=== PATIENT | female | born 1945 | race Caucasian/White ===

== ENCOUNTER 2017-07-28 09:05 | Emergency (ER) | payer MEDICARE ==
[~2017-07-28 09:05] MED LIST: AZIT500T47 PO; CEP500 PO; CHOL10005 PO; CYAN1TAB17 PO; HYDR473S4 PO; IBUP-1618 PO; KORE100C3 PO; MULT-820 PO; MULT1TAB54 PO; OMEP-137 PO; OMEPRAZOLE PO; OXYC-823 PO; PER PO; VIT-7 PO; [UNRECOGNIZED DRUG - CODE] PO
--- NOTE | 2017-07-28 09:17 | ER Report ---
History and Physical Time Seen By MD: 09:16 HPI/ROS CHIEF COMPLAINT: Would like kidney checked HISTORY OF PRESENT ILLNESS: Patient is a 71-year-old female who is complaining of some right-sided flank pain. Patient denies fevers or chills. Pain does seem worse with range of motion. Patient does admit that over the last day or 2 she' s been doing some yard work outside and has been bending over quite a bit. Patient however is concerned that this could be a potential kidney infection so she comes to the emergency department for evaluation REVIEW OF SYSTEMS: Constitutional: No fever, no chills. Eyes: No discharge. ENT: No sore throat. Cardiovascular: No chest pain, no palpitations. Respiratory: No cough, no shortness of breath. Gastrointestinal: No abdominal pain, no vomiting. Genitourinary: No hematuria. Musculoskeletal: Right-sided flank pain Skin: No rashes. Neurological: No headache. Allergies: Coded Allergies: latex (Verified Allergy, Intermediate, RASH, 08/09/16) Uncoded Allergies: BANDAID ADHESIVE (Allergy, Mild, REDNESS, 11/25/11) HAYFEVER (Allergy, Mild, EYES WATERING, 11/25/11) AVOIDS TYLENOL (Adverse Reaction, Unknown, 11/25/11) Home Meds Active Scripts Diclofenac Sodium (DICLOFENAC SODIUM) 50 Mg Tablet.dr, 50 MG PO BID for PAIN, # 20 TAB 0 Refills Prov:JOSH KABA MD 07/28/17 Methocarbamol (ROBAXIN-750) 750 Mg Tablet, 1500 MG PO TID, #15 TAB 0 Refills Prov:JOSH KABA MD 07/28/17 Reported Medications Cyanocobalamin/Cobamamide (Vitamin B-12 5,000 Mcg Tab Sl) 5,000 Mcg-100 Mcg Tab.subl, 1 MG PO DAILY 08/09/16 Cholecalciferol (Vitamin D3) (VITAMIN D3) 1,000 Unit Tablet, 1000 UNIT PO DAILY , TAB 08/09/16 Omeprazole (OMEPRAZOLE) 20 Mg Tablet.dr, 40 MG PO QDAY, TAB 05/06/15 Multivitamin (MULTI-VITAMIN DAILY) 1 Each Tablet, 1 EACH PO 05/06/15 Hx Smoking: Yes (40 YEARS < 1 PPD) Smoking Status: Former Smoker Hx Substance Use Disorder: No Hx Alcohol Use: Yes Constitutional Vital Sign - Last 24 Hours 07/28/17 07/28/17 07/28/17 07/28/17 09:16 09:30 10:00 10:30 Temp 97.9 Pulse 84 82 75 Resp 18 B/P (MAP) 125/76 103/81 (88) 109/76 (87) 114/71 (85) Pulse Ox 94 94 95 O2 Delivery Room Air 07/28/17 11:00 Pulse 71 B/P (MAP) 102/70 (81) Pulse Ox 96 Physical Exam General/Constitutional: Patient is awake, alert, nontoxic and in no acute respiratory distress. Head: Normocephalic and atraumatic. Eyes: Conjunctival clear, Pupils are equal and reactive to light. Extraocular muscles are intact and symmetrical. Sclera are clear and anicteric. Ears:External canals are clear. Tympanic membranes are clear with normal landmarks and light reflex. Nares: No rhinorrhea or bleeding. Turbinates are pink and moist. Oropharyngeal: Mucous membranes are moist. There is no pharyngeal erythema or exudate. There are no palatal petechiae. Uvula is midline and symmetrical. Neck: Supple, no adenopathy. Cardiovascular: Heart is regular rate and rhythm without audible murmurs, rubs or gallops. Pulmonary: Lungs are clear to auscultation bilaterally. There are no wheezes, rales, or rhonchi. Chest rise is symmetrical Abdomen: Soft, nontender, no guarding or peritoneal signs. Extremities: No gross deformities, No peripheral cyanosis. Able to move all 4 extremities. Neuro: Alert and oriented X3, Cranial nerves 2 thru 12 are intact and symmetrical. Patient has normal gait. Skin: No rashes, skin is warm dry and well perfused. Medical Decision Making Data Points Result Diagram: 07/28/17 0944 07/28/17 0944 Laboratory Hematology Test 07/28/17 09:11 07/28/17 09:44 Urine Color Yellow Urine Clarity Slightly-cloudy Urine pH 6.0 pH (4.8-9.5) Urine Specific [place] 1.004 Urine Protein Negative mg/dL (NEGATIVE) Urine Glucose (UA) Negative mg/dL (NEGATIVE) Urine Ketones Negative mg/dL (NEGATIVE) Urine Blood Negative (NEGATIVE) Urine Nitrite Negative (NEGATIVE) Urine Bilirubin Negative (NEGATIVE) Urine Urobilinogen Negative mg/dL (0.2-1.9) Urine Leukocyte Esterase Trace (NEGATIVE) Urine RBC 1 /HPF (0-2/HPF) Urine WBC 2 /HPF (0-5/HPF) Urine Squamous Epithelial Cells Many /LPF (</=FEW) Urine Bacteria Negative /HPF (NONE-FEW) Urine Mucus None /HPF (NONE-FEW) Red Blood Count 4.26 M/uL (4.17-5.56) Mean Corpuscular Volume 99.2 fL (80.0-96.0) Mean Corpuscular Hemoglobin 35.2 pg (26.0-33.0) Mean Corpuscular Hemoglobin Concent 35.4 g/dL (32.0-36.0) Red Cell Distribution Width 12.8 % (11.5-14.5) Mean Platelet Volume 7.7 fL (7.2-11.1) Neutrophils (%) (Auto) 44.0 % (39.4-72.5) Lymphocytes (%) (Auto) 44.6 % (17.6-49.6) Monocytes (%) (Auto) 7.9 % (4.1-12.4) Eosinophils (%) (Auto) 3.0 % (0.4-6.7) Basophils (%) (Auto) 0.5 % (0.3-1.4) Nucleated RBC Relative Count (auto) 0.0 /100WBC Neutrophils # (Auto) 2.4 K/uL (2.0-7.4) Lymphocytes # (Auto) 2.4 K/uL (1.3-3.6) Monocytes # (Auto) 0.4 K/uL (0.3-1.0) Eosinophils # (Auto) 0.2 K/uL (0.0-0.5) Basophils # (Auto) 0.0 K/uL (0.0-0.1) Nucleated RBC Absolute Count (auto) 0.00 K/uL Sodium Level 142 mmol/L (137-145) Potassium Level 3.8 mmol/L (3.5-5.0) Chloride Level 105 mmol/L (98-107) Carbon Dioxide Level 22 mmol/L (22-31) Blood Urea Nitrogen 20 mg/dl (7-18) Creatinine 0.70 mg/dl (0.52-1.04) Glomerular Filtration Rate Calc > 60.0 Random Glucose 141 mg/dl (75-110) Calcium Level 9.5 mg/dl (8.4-10.2) Total Bilirubin 0.8 mg/dl (0.2-1.3) Aspartate Amino Transf (AST/SGOT) 23 U/L (0-35) Alanine Aminotransferase (ALT/SGPT) 23 U/L (0-56) Alkaline Phosphatase 84 U/L (0-126) Total Protein 7.3 gm/dl (6.3-8.2) Albumin 4.1 g/dl (3.5-5.0) Lipase 80 U/L (23-300) Chemistry Test 07/28/17 09:11 07/28/17 09:44 Urine Color Yellow Urine Clarity Slightly-cloudy Urine pH 6.0 pH (4.8-9.5) Urine Specific [place] 1.004 Urine Protein Negative mg/dL (NEGATIVE) Urine Glucose (UA) Negative mg/dL (NEGATIVE) Urine Ketones Negative mg/dL (NEGATIVE) Urine Blood Negative (NEGATIVE) Urine Nitrite Negative (NEGATIVE) Urine Bilirubin Negative (NEGATIVE) Urine Urobilinogen Negative mg/dL (0.2-1.9) Urine Leukocyte Esterase Trace (NEGATIVE) Urine RBC 1 /HPF (0-2/HPF) Urine WBC 2 /HPF (0-5/HPF) Urine Squamous Epithelial Cells Many /LPF (</=FEW) Urine Bacteria Negative /HPF (NONE-FEW) Urine Mucus None /HPF (NONE-FEW) White Blood Count 5.4 k/uL (4.5-11.0) Red Blood Count 4.26 M/uL (4.17-5.56) Hemoglobin 15.0 g/dL (12.0-16.0) Hematocrit 42.2 % (34.0-47.0) Mean Corpuscular Volume 99.2 fL (80.0-96.0) Mean Corpuscular Hemoglobin 35.2 pg (26.0-33.0) Mean Corpuscular Hemoglobin Concent 35.4 g/dL (32.0-36.0) Red Cell Distribution Width 12.8 % (11.5-14.5) Platelet Count 198 K/uL (150-450) Mean Platelet Volume 7.7 fL (7.2-11.1) Neutrophils (%) (Auto) 44.0 % (39.4-72.5) Lymphocytes (%) (Auto) 44.6 % (17.6-49.6) Monocytes (%) (Auto) 7.9 % (4.1-12.4) Eosinophils (%) (Auto) 3.0 % (0.4-6.7) Basophils (%) (Auto) 0.5 % (0.3-1.4) Nucleated RBC Relative Count (auto) 0.0 /100WBC Neutrophils # (Auto) 2.4 K/uL (2.0-7.4) Lymphocytes # (Auto) 2.4 K/uL (1.3-3.6) Monocytes # (Auto) 0.4 K/uL (0.3-1.0) Eosinophils # (Auto) 0.2 K/uL (0.0-0.5) Basophils # (Auto) 0.0 K/uL (0.0-0.1) Nucleated RBC Absolute Count (auto) 0.00 K/uL Glomerular Filtration Rate Calc > 60.0 Calcium Level 9.5 mg/dl (8.4-10.2) Total Bilirubin 0.8 mg/dl (0.2-1.3) Aspartate Amino Transf (AST/SGOT) 23 U/L (0-35) Alanine Aminotransferase (ALT/SGPT) 23 U/L (0-56) Alkaline Phosphatase 84 U/L (0-126) Total Protein 7.3 gm/dl (6.3-8.2) Albumin 4.1 g/dl (3.5-5.0) Lipase 80 U/L (23-300) Urinalysis Test 07/28/17 09:11 Urine Color Yellow Urine Clarity Slightly-cloudy Urine pH 6.0 pH (4.8-9.5) Urine Specific [place] 1.004 Urine Protein Negative mg/dL (NEGATIVE) Urine Glucose (UA) Negative mg/dL (NEGATIVE) Urine Ketones Negative mg/dL (NEGATIVE) Urine Blood Negative (NEGATIVE) Urine Nitrite Negative (NEGATIVE) Urine Bilirubin Negative (NEGATIVE) Urine Urobilinogen Negative mg/dL (0.2-1.9) Urine Leukocyte Esterase Trace (NEGATIVE) Urine RBC 1 /HPF (0-2/HPF) Urine WBC 2 /HPF (0-5/HPF) Urine Squamous Epithelial Cells Many /LPF (</=FEW) Urine Bacteria Negative /HPF (NONE-FEW) Urine Mucus None /HPF (NONE-FEW) EKG/Imaging Imaging FACILITY: [facility] - [place] PATIENT NAME: Marisela Dumont : 1945 MR: [id number] V: [id number] EXAM DATE: ORDERING PHYSICIAN: JOSH KABA TECHNOLOGIST: Location: [facility] [place] Patient: Marisela Duomnt : 1945 Visit/Account:[id number] Date of Sevice: 07/28/2017 CT abdomen and pelvis without IV contrast History: Right flank pain COMPARISON STUDIES: none. TECHNIQUE: Axial CT images were obtained through the abdomen and pelvis without intravenous contrast. Reformatted coronal and sagittal images were also obtained. One of the following dose optimization techniques was utilized in the performance of this exam: Automated exposure control; adjustment of the mA and/ or kV according to the patient's size; or use of an iterative reconstruction technique. Specific details can be referenced in the facility's radiology CT exam operational policy. FINDINGS: Chest bases: Negative Liver: Right and left lobes of the liver measure 18 and 10 cm length, respectively. Liver margins are irregular. The caudate lobe is hypertrophied. Spleen: size is normal. Gallbladder and bile ducts: Cholecystectomy. Generous extrahepatic bile duct. Pancreas: negative Adrenal glands: negative Kidneys: There are no renal stones or hydronephrosis. Pelvic structures: Uterus and ovaries are atrophic. There are no bladder stones. Bowel and mesenteries: Several sigmoid colon diverticula are without acute inflammatory change. Normal retrocecal appendix. Ascites: None Vessels: negative Musculoskeletal: Negative Body wall: Supraumbilical midline ventral hernia contains omentum. Lymph node assessment: negative IMPRESSION: 1. Enlarged liver has features concerning for hepatocellular disease. Correlate with liver function enzymes. 2. Negative study for urinary stones and renal collecting system obstruction. 3. Supraumbilical midline ventral hernia containing omentum. Report Dictated By: Marta Mantilla MD at 07/28/2017 10:44 AM Report E-Signed By: Marta Mantilla MD at 07/28/2017 10:49 AM WSN:[email or web address] ED Course/Re-evaluation ED Course Patient feeling improved suspect symptoms likely musculoskeletal related. We will discharge home. Patient with enlarged liver on CT scan but normal hepatic function on blood test. Decision to Disposition Date: July 28, 2017 Decision to Disposition Time: 12:06 Depart Departure Latest Vital Signs Vital Signs Date Time Temp Pulse Resp B/P (MAP) Pulse Ox O2 Delivery O2 Flow Rate FiO2 07/28/17 11:00 71 102/70 (81) 96 07/28/17 09:16 97.9 18 Room Air Impression: Primary Impression: Back pain Condition: Improved Disposition: HOME OR SELF-CARE Referrals: LULA SHARP (PCP) 2 Days if symptoms persist New Scripts Diclofenac Sodium (DICLOFENAC SODIUM) 50 Mg Tablet.dr 50 MG PO BID for PAIN, #20 TAB 0 Refills Prov: JOSH KABA MD 07/28/17 Methocarbamol (ROBAXIN-750) 750 Mg Tablet 1500 MG PO TID, #15 TAB 0 Refills Prov: JOSH KABA MD 07/28/17 Patient Instructions: Back Pain (GEN) Additional Instructions: Take your medications as prescribed. If your symptoms seem to worsen at any point you should be reevaluated in the emergency department. If your symptoms do not improve over the weekend you should follow-up with your primary care provider. Problem Qualifiers Primary Impression: Back pain Back pain location: low back pain Chronicity: acute Back pain laterality: right Sciatica presence: without sciatica Qualified Codes: M54.5 - Low back pain JOSH KABA MD July 28, 2017 09:17
[2017-07-28] MEDS ORDERED: NS(*) 0.9% 500 ML BAG 500 ML IV ONE (09:24)
[2017-07-28] MEDS ORDERED: KETOROLAC 30 MG/ML VIAL IVP ONE (09:25)
[2017-07-28 09:55] LABS: PLATELET COUNT, AUTOMATED 198 K/uL (150-450)
--- NOTE | 2017-07-28 10:53 | RADIOLOGY IMAGING REPORT ---
FACILITY: [facility] PATIENT NAME: Marisela Dumont : 1945 MR: [id number] V: [id number] EXAM DATE: ORDERING PHYSICIAN: JOSH KABA TECHNOLOGIST: Location: [facility] Patient: Marisela Dumont : 1945 Visit/Account:[id number] Date of Sevice: 07/28/2017 CT abdomen and pelvis without IV contrast History: Right flank pain COMPARISON STUDIES: none. TECHNIQUE: Axial CT images were obtained through the abdomen and pelvis without intravenous contras t. Reformatted coronal and sagittal images were also obtained. One of the following dose optimization techniques was utilized in the performance of this exam: Autom ated exposure control; adjustment of the mA and/or kV according to the patient's size; or use of an i terative reconstruction technique. Specific details can be referenced in the facility's radiology C T exam operational policy. FINDINGS: Chest bases: Negative Liver: Right and left lobes of the liver measure 18 and 10 cm length, respectively. Liver margins a re irregular. The caudate lobe is hypertrophied. Spleen: size is normal. Gallbladder and bile ducts: Cholecystectomy. Generous extrahepatic bile duct. Pancreas: negative Adrenal glands: negative Kidneys: There are no renal stones or hydronephrosis. Pelvic structures: Uterus and ovaries are atrophic. There are no bladder stones. Bowel and mesenteries: Several sigmoid colon diverticula are without acute inflammatory change. Nor mal retrocecal appendix. Ascites: None Vessels: negative Musculoskeletal: Negative Body wall: Supraumbilical midline ventral hernia contains omentum. Lymph node assessment: negative IMPRESSION: 1. Enlarged liver has features concerning for hepatocellular disease. Correlate with liver function enzymes. 2. Negative study for urinary stones and renal collecting system obstruction. 3. Supraumbilical midline ventral hernia containing omentum. Report Dictated By: Marta Mantilla MD at 07/28/2017 10:44 AM Report E-Signed By: Marta Mantilla MD at 07/28/2017 10:49 AM WSN:[email or web address]
[2017-07-28] MEDS ORDERED: KETOROLAC 15 MG/ML VIAL IVP ONE (10:55)
[2017-07-28 11:00] VITALS: BP 102/70
[2017-07-28] MEDS ORDERED: DICL-192 PO (11:08)
[2017-07-28] MEDS ORDERED: METH-543 PO (11:08)
== END 2017-07-28 11:15 | disposition home or self-care (01) ==
LOC: ER 09:16
DX: M54.5 Low back pain (principal)
CPT/HCPCS: 74176; 81001; 83690; 85025; 96361; 96374; 96376; 99284; J1885; J7040; 82040; 82247; 82310; 82374; 82435; 82565; 82947; 84075; 84132; 84155; 84295; 84450; 84460; 84520

== ENCOUNTER 2018-08-17 09:40 | Emergency (ER) | payer MEDICARE ==
[~2018-08-17 09:40] MED LIST changes: +DICL-192 PO; +METH-543 PO
--- NOTE | 2018-08-17 09:49 | ER Report ---
History and Physical Time Seen By MD: 09:46 HPI/ROS CHIEF COMPLAINT: Left-sided chest pain and shortness of breath. HISTORY OF PRESENT ILLNESS: Patient is a 72-year-old female who states that approximate 4 days ago she started developing left-sided chest wall pain. The pain is worse with movement but she is also noted pain with deep inspiration. The pain does not go away he states it is currently 10 out of 10 in intensity. The pain radiates around from the left front of the chest around the rib cage to the back. She denies any hemoptysis. She denies any prior lung or heart issues. She denies fevers or chills she denies productive cough. She denies any abdominal pain. She denies nausea vomiting or fevers. Patient is a smoker but quit approximately 3-4 years ago. Prior history of DVT or PE no recent travel history. REVIEW OF SYSTEMS: Constitutional: No fever, no chills. Eyes: No discharge. ENT: No sore throat. Cardiovascular: Left-sided chest pain Respiratory: Shortness of breath Gastrointestinal: No abdominal pain, no vomiting. Genitourinary: No hematuria. Musculoskeletal: No back pain. Skin: No rashes. Neurological: No headache. Allergies: Coded Allergies: latex (Verified Allergy, Intermediate, RASH, 08/09/16) Uncoded Allergies: BANDAID ADHESIVE (Allergy, Mild, REDNESS, 11/25/11) HAYFEVER (Allergy, Mild, EYES WATERING, 11/25/11) AVOIDS TYLENOL (Adverse Reaction, Unknown, 11/25/11) Home Meds Active Scripts Apixaban (ELIQUIS) 5 Mg Tablet, 5 MG PO BID, #60 TAB 2 Refills Start after completing 7 days of 2 tablets twice per day; then take one tablet twice per day Prov:JOSH MCKENZIE MD 08/17/18 Apixaban (ELIQUIS) 5 Mg Tablet, 10 MG PO BID for 7 Days, #28 TAB 0 Refills take 2 tablets (10mg) twice per day for 7 days; then switch to other prescrition and take one tablet (5mg) twice per day. Prov:JOSH MCKENZIE MD 08/17/18 Reported Medications Cyanocobalamin/Cobamamide (Vitamin B-12 5,000 Mcg Tab Sl) 5,000 Mcg-100 Mcg Tab.subl, 1 MG PO DAILY 08/09/16 Cholecalciferol (Vitamin D3) (VITAMIN D3) 1,000 Unit Tablet, 1000 UNIT PO DAILY, TAB 08/09/16 Omeprazole (OMEPRAZOLE) 20 Mg Tablet.dr, 40 MG PO QDAY, TAB 05/06/15 Multivitamin (MULTI-VITAMIN DAILY) 1 Each Tablet, 1 EACH PO 05/06/15 Discontinued Scripts Diclofenac Sodium (DICLOFENAC SODIUM) 50 Mg Tablet.dr, 50 MG PO BID for PAIN, #20 TAB 0 Refills Prov:JOSH MCKENZIE MD 07/28/17 Methocarbamol (ROBAXIN-750) 750 Mg Tablet, 1500 MG PO TID, #15 TAB 0 Refills Prov:JOSH MCKENZIE MD 07/28/17 Past Medical/Surgical History History of gastroesophageal reflux disease Hx Smoking: Yes (40 YEARS < 1 PPD) Smoking Status: Former Smoker Hx Substance Use Disorder: Yes Hx Alcohol Use: Yes Constitutional Vital Sign - Last 24 Hours 08/17/18 08/17/18 08/17/18 08/17/18 09:44 09:46 09:53 10:00 Temp 98.9 Pulse 102 Resp 28 B/P (MAP) 118/80 118/80 (93) 111/79 (90) Pulse Ox 83 O2 Delivery Room Air O2 Flow Rate 2.0 08/17/18 08/17/18 08/17/18 08/17/18 10:10 10:30 10:35 11:00 Pulse 102 96 Resp 30 27 B/P (MAP) 101/66 (78) 100/57 (71) Pulse Ox 91 91 08/17/18 08/17/18 08/17/18 08/17/18 11:05 11:30 11:35 11:40 Pulse 92 88 87 Resp 23 20 26 B/P (MAP) 92/66 (75) Pulse Ox 90 90 90 08/17/18 12:00 B/P (MAP) 104/70 (81) Physical Exam General Appearance: The patient is alert, has no immediate need for airway protection and no signs of toxicity. Eyes: Pupils equal and round no pallor or injection. ENT, Mouth: Mucous membranes are moist. Respiratory: Patient with decreased breath sounds on the left side, also with crackles to the left base. Cardiovascular: Regular rate and rhythm. [ ] Gastrointestinal: Abdomen is soft and non tender, no masses, bowel sounds normal. Neurological: Awake and alert Skin: Warm and dry, no rashes. Musculoskeletal: Neck is supple non tender. Extremities are nontender, nonswollen and have full range of motion. Medical Decision Making Data Points Result Diagram: 08/17/18 1009 08/17/18 1009 Laboratory Hematology Test 08/17/18 10:09 Red Blood Count 4.31 M/uL (4.17-5.56) Mean Corpuscular Volume 99.2 fL (80.0-96.0) Mean Corpuscular Hemoglobin 34.4 pg (26.0-33.0) Mean Corpuscular Hemoglobin Concent 34.7 g/dL (32.0-36.0) Red Cell Distribution Width 12.9 % (11.5-14.5) Mean Platelet Volume 7.9 fL (7.2-11.1) Neutrophils (%) (Auto) 66.9 % (39.4-72.5) Lymphocytes (%) (Auto) 21.0 % (17.6-49.6) Monocytes (%) (Auto) 10.7 % (4.1-12.4) Eosinophils (%) (Auto) 1.2 % (0.4-6.7) Basophils (%) (Auto) 0.2 % (0.3-1.4) Nucleated RBC Relative Count (auto) 0.1 /100WBC Neutrophils # (Auto) 6.4 K/uL (2.0-7.4) Lymphocytes # (Auto) 2.0 K/uL (1.3-3.6) Monocytes # (Auto) 1.0 K/uL (0.3-1.0) Eosinophils # (Auto) 0.1 K/uL (0.0-0.5) Basophils # (Auto) 0.0 K/uL (0.0-0.1) Nucleated RBC Absolute Count (auto) 0.01 K/uL Prothrombin Time 14.0 seconds (12.0-14.4) Prothromb Time International Ratio 1.07 Activated Partial Thromboplast Time 33 seconds (23-35) Sodium Level 140 mmol/L (137-145) Potassium Level 3.8 mmol/L (3.5-5.0) Chloride Level 105 mmol/L (98-107) Carbon Dioxide Level 23 mmol/L (22-31) Blood Urea Nitrogen 9 mg/dl (7-18) Creatinine 0.50 mg/dl (0.52-1.04) Glomerular Filtration Rate Calc > 60.0 Random Glucose 121 mg/dl (75-110) Calcium Level 9.0 mg/dl (8.4-10.2) Total Bilirubin 2.5 mg/dl (0.2-1.3) Aspartate Amino Transf (AST/SGOT) 26 U/L (0-35) Alanine Aminotransferase (ALT/SGPT) 23 U/L (0-56) Alkaline Phosphatase 94 U/L (0-126) Troponin I < 0.012 ng/ml B-Type Natriuretic Peptide 32 pg/ml (0-100) Total Protein 7.8 g/dl (6.3-8.2) Albumin 4.1 g/dl (3.5-5.0) Chemistry Test 08/17/18 10:09 White Blood Count 9.6 k/uL (4.5-11.0) Red Blood Count 4.31 M/uL (4.17-5.56) Hemoglobin 14.9 g/dL (12.0-16.0) Hematocrit 42.8 % (34.0-47.0) Mean Corpuscular Volume 99.2 fL (80.0-96.0) Mean Corpuscular Hemoglobin 34.4 pg (26.0-33.0) Mean Corpuscular Hemoglobin Concent 34.7 g/dL (32.0-36.0) Red Cell Distribution Width 12.9 % (11.5-14.5) Platelet Count 194 K/uL (150-450) Mean Platelet Volume 7.9 fL (7.2-11.1) Neutrophils (%) (Auto) 66.9 % (39.4-72.5) Lymphocytes (%) (Auto) 21.0 % (17.6-49.6) Monocytes (%) (Auto) 10.7 % (4.1-12.4) Eosinophils (%) (Auto) 1.2 % (0.4-6.7) Basophils (%) (Auto) 0.2 % (0.3-1.4) Nucleated RBC Relative Count (auto) 0.1 /100WBC Neutrophils # (Auto) 6.4 K/uL (2.0-7.4) Lymphocytes # (Auto) 2.0 K/uL (1.3-3.6) Monocytes # (Auto) 1.0 K/uL (0.3-1.0) Eosinophils # (Auto) 0.1 K/uL (0.0-0.5) Basophils # (Auto) 0.0 K/uL (0.0-0.1) Nucleated RBC Absolute Count (auto) 0.01 K/uL Prothrombin Time 14.0 seconds (12.0-14.4) Prothromb Time International Ratio 1.07 Activated Partial Thromboplast Time 33 seconds (23-35) Glomerular Filtration Rate Calc > 60.0 Calcium Level 9.0 mg/dl (8.4-10.2) Total Bilirubin 2.5 mg/dl (0.2-1.3) Aspartate Amino Transf (AST/SGOT) 26 U/L (0-35) Alanine Aminotransferase (ALT/SGPT) 23 U/L (0-56) Alkaline Phosphatase 94 U/L (0-126) Troponin I < 0.012 ng/ml B-Type Natriuretic Peptide 32 pg/ml (0-100) Total Protein 7.8 g/dl (6.3-8.2) Albumin 4.1 g/dl (3.5-5.0) Coagulation Test 08/17/18 10:09 Prothrombin Time 14.0 seconds Prothromb Time International Ratio 1.07 Activated Partial Thromboplast Time 33 seconds EKG/Imaging EKG Interpretation EKG from June 2016 was reviewed which showed a ventricular rate of 101 bpm, sinus tachycardia and nonspecific ST segment and T-wave abnormalities were noted. Comparing to EKG from today 08/17/2018 patient has a ventricular rate of 101 bpm with sinus tachycardia and nonspecific ST segment T-wave abnormalities. No appreciable changes between the 2 EKGs were noted. Monitor Interpretation: Normal Sinus Rhythm Imaging FACILITY: [facility] PATIENT NAME: Marisela Dumont : 1945 MR: [id number] V: [id number] EXAM DATE: ORDERING PHYSICIAN: JOSH MCKENZIE TECHNOLOGIST: Location: [facility] - [place] Patient: Marislea Dumont : 1945 Visit/Account:[id number] Date of Sevice: 08/17/2018 CT CTA CHEST W & W/O CON HISTORY: left cp; hypoxia TECHNIQUE: CTA chest with intravenous contrast attention to pulmonary arteries. Sagittal, coronal and slab 3D MIP coronal reconstructed images were also created for further evaluation and interpretation. CONTRAST: Isovue-370 100 mls. One of the following dose optimization techniques was utilized in the performance of this exam: Automated exposure control; adjustment of the mA and/or kV according to the patient's size; or use of an iterative reconstruction technique. Specific details can be referenced in the facility's radiology CT exam operational policy. COMPARISON: None. FINDINGS: Heart/coronary vessels: The heart size is normal. The RV: LV ratio is 0.8 Pulmonary arteries: There is a filling defect in 2 posterior segmental left lower lobe pulmonary arteries consistent with pulmonary embolus. There is associated left lower lobe atelectasis and a pleural effusion. There is a filling defect in the right middle lobe segmental bronchus also consistent with pulmonary embolus. There is minimal atelectasis in the right lung base but no pleural effusion. Thoracic aorta: No dissection. Mediastinum: There is a small hiatal hernia. Lymph nodes: There are small lymph nodes in the pretracheal region and periaortic region. The largest lymph node measures approximately 1.7cm in size in the left suprahilar region or periaortic region. Lungs/pleura: There is parenchymal density in the left lower lobe representing atelectasis. A pulmonary infarct cannot be excluded. Pneumonia cannot be excluded. There is a small left pleural effusion. There is passive atelectasis in the right lung base. Visualized upper abdomen: Status post cholecystectomy. Surgical clips in gallbladder fossa. No findings of a mass. Bones/soft tissues: Negative. IMPRESSION: 1. Low volume pulmonary embolus involving 2 segmental arteries in the left lower lobe posteriorly and the right middle lobe segmental bronchus. 2. Parenchymal density in the left lower lobe representing atelectasis, pulmonary infarct and or an early infiltrate. 3. Small left pleural effusion perhaps also related to pulmonary embolus. 4. Small lymph nodes as described above. 5. Small hiatal hernia. Results were called to JOSH MCKENZIE M.D. At 08/17/2018 11:42 AM. Report Dictated By: Errol Oliver MD at 08/17/2018 11:30 AM Report E-Signed By: Errol Oliver MD at 08/17/2018 11:42 AM WSN:[email or web address] ED Course/Re-evaluation Clinical Indication for ER IV: IV Access ED Course 08/17/2018 11:58:51 am patient with 2 low-volume pulmonary emboli involving subsegmental arteries in the left lower lobe posteriorly in the right middle lobe of the segmental bronchus. Small pleural effusion related to pulmonary embolism also questionable pulmonary infarct or potentially early infiltrate, suspect based on patient's presentation along with absence of infectious type symptoms that this is likely pulmonary infarct. We will place the patient on oxygen given a dose of Lovenox and will place the patient on 10 mg of Eliquis twice per day and then switching to 5 mg twice per day for the next 3 months. I spoke with Dr. Lisandra Pabon history physical exam pertinent lab information as well as imaging studies were reviewed. We will place the patient on Eliquis 10 mg twice per day and then 25 mg twice per day Dr. Pabon will follow the patient up within the next 1-2 weeks. Patient has no questions or concerns at time of disposition she was discharged to home in stable condition. Decision to Disposition Date: Aug 17, 2018 Decision to Disposition Time: 12:01 Depart Departure Latest Vital Signs Vital Signs Date Time Temp Pulse Resp B/P (MAP) Pulse Ox O2 Delivery O2 Flow Rate FiO2 08/17/18 12:00 104/70 (81) 08/17/18 11:40 87 26 90 08/17/18 09:53 2.0 08/17/18 09:44 98.9 Room Air Impression: Primary Impression: Pulmonary emboli Additional Impression: Hypoxia Condition: Improved Disposition: HOME OR SELF-CARE Referrals: LULA SHARP (PCP) LISANDRA ISLAS DO 2 Weeks for recheck of respiratory symptoms New Scripts Apixaban (ELIQUIS) 5 Mg Tablet 5 MG PO BID, #60 TAB 2 Refills Start after completing 7 days of 2 tablets twice per day; then take one tablet twice per day Prov: JOSH MCKENZIE MD 08/17/18 Apixaban (ELIQUIS) 5 Mg Tablet 10 MG PO BID for 7 Days, #28 TAB 0 Refills take 2 tablets (10mg) twice per day for 7 days; then switch to other prescrition and take one tablet (5mg) twice per day. Prov: JOSH MCKENZIE MD 08/17/18 Departure Forms: ER Transition Record, Home Oxygen, Nebulizer RX, Durable Medical Equipment-Oxygen: Oxygen Concentrator, Portable Oxygen Gas Reason for Use/Diagnosis: Pulmonary embolism Start Date of the Order: Aug 17, 2018 Dosage or Concentration (if applicable) - LPM: 2 Route of Administration (if applicable): Nasal Cannula Frequency of Use: Continuous Duration Home O2 Required: 30 Duration Units: Days Room Air Oxygen Saturation: 83 ER Prescribing Physician's Name: Josh Mckenzie NPI Numbers for Local ER MDs: Magaly [id number] Medications Reconciliation, Patient Portal Information Additional Instructions: Follow-up with Dr. Pabon in 1-2 weeks. She is aware that he will be calling to schedule this appointment. Take medications as directed. You should return to the emergency department if it any time you develop worsening symptoms including chest pain or worsening shortness of breath or if you develop fever at any time. Problem Qualifiers Primary Impression: Pulmonary emboli Pulmonary embolism type: unspecified Chronicity: acute Acute cor pulmonale presence: without acute cor pulmonale Qualified Codes: I26.99 - Other pulmonary embolism without acute cor pulmonale JOSH MCKENZIE MD Aug 17, 2018 09:49
[2018-08-17] MEDS ORDERED: ASPIRIN 81 MG CHEW PO ONE (10:05)
[2018-08-17] MEDS ORDERED: KETOROLAC 30 MG/ML VIAL IVP ONE (10:05)
--- NOTE | 2018-08-17 10:18 | EKG ---
FACILITY: [facility] PATIENT NAME: TERRA BRIDGES : [id number] MR: [id number] V: [id number] EXAM DATE: ORDERING PHYSICIAN: JOSH KABA TECHNOLOGIST: ALEJANDRO Dickerson Reason : chest pain Blood Pressure : / mmHG Vent. Rate : 101 BPM Atrial Rate : 101 BPM P-R Int : 126 ms QRS Dur : 084 ms QT Int : 356 ms P-R-T Axes : 030 001 052 degrees QTc Int : 461 ms Sinus tachycardia Borderline left axis Nonspecific ST abnormality Abnormal ECG When compared with ECG of 08-JUN-2016 13:23, No significant change was found Confirmed by DEVONTE PARMAR ([id number]) on 08/17/2018 4:51:36 PM Referred By: Confirmed By:DEVONTE PARMAR
[2018-08-17] MEDS ORDERED: IOPAMIDOL 76% 100 ML INFUS BTL 100 ML ONE (10:21)
[2018-08-17] MEDS ORDERED: NS(*) 0.9% 50 ML BAG 50 ML ONE (10:22)
[2018-08-17 10:31] LABS: PLATELET COUNT, AUTOMATED 194 K/uL (150-450)
[2018-08-17 10:35] LABS: INR 1.07
[2018-08-17] MEDS ORDERED: ENOXAPARIN 100 MG/ML SYR SC ONE (11:45)
--- NOTE | 2018-08-17 11:48 | RADIOLOGY IMAGING REPORT ---
[place] [facility] [place] Marisela Dumont : 1945 MR: [id number] V: [id number] EXAM DATE: ORDERING PHYSICIAN: JOSH KABA TECHNOLOGIST: Location: [facility] [place] Patient: Marisela Dumont : 1945 Visit/Account:[id number] Date of Sevice: 08/17/2018 CT CTA CHEST W & W/O CON HISTORY: left cp; hypoxia TECHNIQUE: CTA chest with intravenous contrast attention to pulmonary arteries. Sagittal, coronal a nd slab 3D MIP coronal reconstructed images were also created for further evaluation and interpretati on. CONTRAST: Isovue-370 100 mls. One of the following dose optimization techniques was utilized in the performance of this exam: Autom ated exposure control; adjustment of the mA and/or kV according to the patient's size; or use of an i terative reconstruction technique. Specific details can be referenced in the facility's radiology C T exam operational policy. COMPARISON: None. FINDINGS: Heart/coronary vessels: The heart size is normal. The RV: LV ratio is 0.8 Pulmonary arteries: There is a filling defect in 2 posterior segmental left lower lobe pulmonary frances edna consistent with pulmonary embolus. There is associated left lower lobe atelectasis and a pleura l effusion. There is a filling defect in the right middle lobe segmental bronchus also consistent wi th pulmonary embolus. There is minimal atelectasis in the right lung base but no pleural effusion. Thoracic aorta: No dissection. Mediastinum: There is a small hiatal hernia. Lymph nodes: There are small lymph nodes in the pretracheal region and periaortic region. The large st lymph node measures approximately 1.7cm in size in the left suprahilar region or periaortic region . Lungs/pleura: There is parenchymal density in the left lower lobe representing atelectasis. A pulmo nary infarct cannot be excluded. Pneumonia cannot be excluded. There is a small left pleural effusi on. There is passive atelectasis in the right lung base. Visualized upper abdomen: Status post cholecystectomy. Surgical clips in gallbladder fossa. No fin dings of a mass. Bones/soft tissues: Negative. IMPRESSION: 1. Low volume pulmonary embolus involving 2 segmental arteries in the left lower lobe posteriorly an d the right middle lobe segmental bronchus. 2. Parenchymal density in the left lower lobe representing atelectasis, pulmonary infarct and or an early infiltrate. 3. Small left pleural effusion perhaps also related to pulmonary embolus. 4. Small lymph nodes as described above. 5. Small hiatal hernia. Results were called to JOSH KABA M.D. At 08/17/2018 11:42 AM. Report Dictated By: Errol Oliver MD at 08/17/2018 11:30 AM Report E-Signed By: Errol Oliver MD at 08/17/2018 11:42 AM WSN:[email or web address]
[2018-08-17] MEDS ORDERED: APIX5TAB PO (11:50)
[2018-08-17 12:00] VITALS: BP 104/70
[2018-08-17] MEDS ORDERED: NAPROXEN 500 MG TAB PO ONE (12:15)
== END 2018-08-17 12:38 | disposition home or self-care (01) ==
LOC: ER 09:49
DX: I26.99 Other pulmonary embolism without acute cor pulmonale (principal); R09.02 Hypoxemia
CPT/HCPCS: 71275; 83880; 84484; 85025; 85610; 85730; 93005; 96374; 99284; A9270; J1650; J1885; J7050; Q9967; 82040; 82247; 82310; 82374; 82435; 82565; 82947; 84075; 84132; 84155; 84295; 84450; 84460; 84520

== ENCOUNTER → 2018-08-24 | Outpatient (CLI) | payer MEDICARE ==
[~2018-08-24] MED LIST changes: +APIX5TAB PO
--- NOTE | 2018-08-24 16:07 | RADIOLOGY IMAGING REPORT ---
FACILITY: [facility] PATIENT NAME: Marisela Dumont : 1945 MR: [id number] V: [id number] EXAM DATE: ORDERING PHYSICIAN: DENNY ISLAS TECHNOLOGIST: Location: [facility] Patient: Marisela Dumont : 1945 Visit/Account:[id number] Date of Sevice: 08/24/2018 EXAMINATION: Doppler ultrasound carotid HISTORY: Right carotid bruit. COMPARISON: None. TECHNIQUE: Real-time grayscale, color flow and Doppler sonography of the cervical carotid and vertebr al arteries is performed. Stenosis % is determined from velocity criteria extrapolated from diameter data as defined by the Soc iety of Radiologists in Ultrasound Consensus Conference Radiology 2003; 229;340-346. FINDINGS: Plaque: . Mild soft plaque is present in each carotid bulb. Waveforms: Vessel tortuosity is seen, greatest in the right common carotid artery and in the right gr eater than left internal carotid artery. This contributes to mildly turbulent vascular flow bilatera lly. Vertebral arteries: Antegrade flow in both vertebral arteries. Peak systolic velocities are listed below in centimeters/second: Right: CCA proximal: 94 CCA mid: 67 CCA distal: 68 Bulb: 53 ICA proximal: 63 ICA mid: 72 ICA distal: 106 ECA: 60 Vertebral: 43 ICA/CCA ratio: 1.13 Left: CCA proximal: 99 CCA mid: 64 CCA distal: 73 Bulb: 56 ICA proximal: 51 ICA mid: 61 ICA distal: 98 ECA: 67 Vertebral: 47 ICA/CCA ratio: 1.01 IMPRESSION: 1. No hemodynamically significant stenosis of greater than 50% bilaterally. 2. Right greater than left vascular tortuosity with resultant turbulent vascular flow. 3. Trace atherosclerosis. Report Dictated By: Karlie Early MD at 08/24/2018 3:58 PM Report E-Signed By: Karlie Early MD at 08/24/2018 4:02 PM WSN:[email or web address]
--- NOTE | 2018-08-24 17:30 | RADIOLOGY IMAGING REPORT ---
FACILITY: [facility] PATIENT NAME: Marisela Dumont : 1945 MR: [id number] V: [id number] EXAM DATE: ORDERING PHYSICIAN: DENNY ISLAS TECHNOLOGIST: Location: [facility] Patient: Marisela Dumont : 1945 Visit/Account:[id number] Date of Sevice: 08/24/2018 Bilateral lower extremity duplex venous ultrasound Indication: Leg swelling Comparison: None Available Findings: Duplex Doppler and color flow imaging was performed. The bilateral common femoral, femoral , and popliteal veins are all patent and compressible with normal Doppler wave forms. There are norm al responses to augmentation. The proximal greater saphenous veins are also normal. Impression: 1. No evidence of deep venous thrombosis of the bilateral lower extremities. Report Dictated By: Momo Strauss DO at 08/24/2018 5:22 PM Report E-Signed By: Momo Strauss DO at 08/24/2018 5:24 PM WSN:[id number]
== END ==
LOC: US 01:35
PROVIDERS: ATTEND Family Medicine
DX: I65.21 Occlusion and stenosis of right carotid artery (principal); I26.99 Other pulmonary embolism without acute cor pulmonale; M79.604 Pain in right leg; M79.605 Pain in left leg; I70.209 Unspecified atherosclerosis of native arteries of extremities, unspecified extremity
CPT/HCPCS: 93880; 93970

== ENCOUNTER 2018-09-16 09:36 | Emergency (ER) | payer MEDICARE ==
[2018-09-16 09:41] VITALS: BP 111/84
[2018-09-16] MEDS ORDERED: DIPHTH/TETANUS/ACEL. PERTUSSIS IM ONLY ONE (09:45)
--- NOTE | 2018-09-16 09:45 | ER Report ---
History and Physical Time Seen By MD: 09:41 Hx. of Stated Complaint: RIGHT HAND LAC HPI/ROS CHIEF COMPLAINT: Hand laceration HISTORY OF PRESENT ILLNESS: Otherwise healthy 9-year-old female come to the emergency department today with a complaint of a laceration to the web space on her dominant right hand. Patient was at the car wash went to put the hose back in the manual carwash and the hose squirted causing her hand a become abraded against the side of the container. At the very shallow laceration she said it was bleeding briskly but that has subsequently stopped she isn't L request patient has full range of motion and no additional complaints noted REVIEW OF SYSTEMS: Respiratory: No cough, no dyspnea. Cardiovascular: No chest pain, no palpitations. Gastrointestinal: No vomiting, no abdominal pain. Musculoskeletal: No back pain. Remainder of the 14 system rev: Yes Allergies: Coded Allergies: latex (Verified Allergy, Intermediate, RASH, 08/09/16) Uncoded Allergies: BANDAID ADHESIVE (Allergy, Mild, REDNESS, 11/25/11) HAYFEVER (Allergy, Mild, EYES WATERING, 11/25/11) AVOIDS TYLENOL (Adverse Reaction, Unknown, 11/25/11) Home Meds Active Scripts Apixaban (ELIQUIS) 5 Mg Tablet, 5 MG PO BID, #60 TAB 2 Refills Start after completing 7 days of 2 tablets twice per day; then take one tablet twice per day Prov:JOSH KABA MD 08/17/18 Apixaban (ELIQUIS) 5 Mg Tablet, 10 MG PO BID for 7 Days, #28 TAB 0 Refills take 2 tablets (10mg) twice per day for 7 days; then switch to other prescrition and take one tablet (5mg) twice per day. Prov:JOSH KABA MD 08/17/18 Reported Medications Cyanocobalamin/Cobamamide (Vitamin B-12 5,000 Mcg Tab Sl) 5,000 Mcg-100 Mcg Tab.subl, 1 MG PO DAILY 08/09/16 Cholecalciferol (Vitamin D3) (VITAMIN D3) 1,000 Unit Tablet, 1000 UNIT PO DAILY, TAB 08/09/16 Omeprazole (OMEPRAZOLE) 20 Mg Tablet.dr, 40 MG PO QDAY, TAB 05/06/15 Multivitamin (MULTI-VITAMIN DAILY) 1 Each Tablet, 1 EACH PO 05/06/15 Reviewed Nurses Notes: Yes Old Medical Records Reviewed: Yes Hx Smoking: Yes (40 YEARS < 1 PPD) Smoking Status: Former Smoker Hx Substance Use Disorder: Yes Hx Alcohol Use: Yes Constitutional Vital Sign - Last 24 Hours 09/16/18 09:41 Temp 98.7 Pulse 88 Resp 12 B/P (MAP) 111/84 Pulse Ox 89 O2 Delivery Room Air Physical Exam General appearance: Alert no distress. Respiratory: Chest is non tender, lungs are clear to auscultation. Cardiac: Regular rate and rhythm [ ] And examination and there is an angular very shallow just in the superficial subcutaneous layer more of an abrasion to the hand and not actively bleeding. Neurovascular intact of the web space on the dorsal surface of the right hand DIFFERENTIAL DIAGNOSIS: After history and physical exam differential diagnosis was considered for abrasion versus laceration Medical Decision Making ED Course/Re-evaluation ED Course ED course of-year-old female comes in with an abrasion/laceration of her right hand in the webspace angulated 4-6 cm eszopiclone with Dermabond and Steri- Strips will be cleaned copiously irrigated tenderness of the updated and sterile dressing applied Decision to Disposition Date: Sep 16, 2018 Decision to Disposition Time: 09:47 Depart Departure Latest Vital Signs Vital Signs Date Time Temp Pulse Resp B/P (MAP) Pulse Ox O2 Delivery O2 Flow Rate FiO2 09/16/18 09:41 98.7 88 12 111/84 89 Room Air Impression: Primary Impression: Laceration Condition: Improved Disposition: HOME OR SELF-CARE Referrals: DENNY ISLAS DO (PCP) 1 Week Patient Instructions: Acute Wound Care (DC) KEYVN DIAZ MD Sep 16, 2018 09:45
== END 2018-09-16 10:11 | disposition home or self-care (01) ==
LOC: ER 09:42
DX: S61.411A Laceration without foreign body of right hand, initial encounter (principal)
CPT/HCPCS: 90471; 90715; 99283